=== PATIENT | female | born 1995 | race Caucasian/White ===

== ENCOUNTER 2018-01-12 14:08 | Emergency (ER) | payer OTHER ==
[2018-01-12 14:23] VITALS: RESP 18; TEMP 98.1
[2018-01-12] MEDS ORDERED: SODIUM CHLORIDE 0.9% 1,000 ML IV STA ×2 (15:00)
[2018-01-12 15:27] LABS: Appearance,Urine Clear (Clear); Bilirubin,Urine Negative (Negative); Blood,Urine Negative (Negative); Color,Urine Light Yellow; Glucose,Urine (UA) Negative (Negative); Ketones,Urine Negative (Negative); Leukocyte Esterase,Urine Negative (Negative); Nitrite,Urine Negative (Negative); Protein,Urine Negative (Negative); Specific Gravity,Urine 1.006 (1.001-1.035); Urobilinogen,Urine <2.0 mg/dL (<2.0)
[2018-01-12] MEDS ORDERED: KETOROLAC 30 MG/ML 1 ML VIAL IVP STA (15:38)
[2018-01-12] MEDS ORDERED: ONDANSETRON 4 MG/2 ML VIAL IVP STA (15:39)
[2018-01-12 15:43] LABS: Basophils # (A) 0.1 k/uL (0-0.2); Basophils % (A) 1 %; Eosinophils # (A) 0.3 k/uL (0-0.7); Eosinophils % (A) 3 %; HCT 41.9 % (34.0-46.0); HGB 13.2 gm/dL (11.4-16.0); Lymphocytes # (A) 2.7 k/uL (1.0-4.8); Lymphocytes % (A) 32 %; MCH 25.9 pg (25.0-35.0); MCHC 31.5 g/dL (31.0-37.0); MCV 82.2 fL (80.0-100.0); Monocytes # (A) 0.5 k/uL (0-1.0); Monocytes % (A) 5 %; Neutrophils # (A) 4.8 k/uL (1.3-7.7); Neutrophils % (A) 56 %; Platelet Count 390 k/uL (150-450); RDW 13.3 % (11.5-15.5); WBC 8.4 k/uL (3.8-10.6)
[2018-01-12 15:53] LABS: ALT 26 U/L (9-52); AST 24 U/L (14-36); Albumin 4.7 g/dL (3.5-5.0); Alkaline Phosphatase 92 U/L (38-126); Amylase 49 U/L (30-110); Anion Gap 12 mmol/L; Blood Urea Nitrogen 10 mg/dL (7-17); Calcium 10.2 mg/dL (8.4-10.2); Carbon Dioxide 25 mmol/L (22-30); Chloride 105 mmol/L (98-107); Glucose 83 mg/dL (74-99); Lipase 41 U/L (23-300); Potassium 4.4 mmol/L (3.5-5.1); Sodium 142 mmol/L (137-145); Total Bilirubin 0.3 mg/dL (0.2-1.3); Total Protein 7.9 g/dL (6.3-8.2)
--- NOTE | 2018-01-12 15:59 | ED ---
Abdominal Pain HPI - General Chief Complaint: Abdominal Pain Stated Complaint: Abdominal pain Time Seen by Provider: 01/12/18 15:00 Source: patient, RN notes reviewed, old records reviewed Mode of arrival: ambulatory Limitations: no limitations - History of Present Illness Initial Comments: 22 -year-old female presents emergency department today with lower abdominal pain. Patient reports that she's been having some nausea as well. She denies any urinary dysuria or hematuria. She states she's had normal bowel movements. She does have history of endometriosis. Last menstrual period was 2 weeks ago. She denies any chest pain shortness breath. - Related Data Home Medications Medication Instructions Recorded Confirmed Simethicone [Gas-X] 62.5 mg PO DAILY PRN 01/12/18 01/12/18 Previous Rx's Medication Instructions Recorded Ketorolac [Toradol] 10 mg PO TID #20 tab 01/12/18 Allergies Allergy/AdvReac Type Severity Reaction Status Date / Time methylphenidate Allergy Unknown Verified 01/12/18 14:26 [From Ritalin] Review of Systems ROS Statement: Those systems with pertinent positive or pertinent negative responses have been documented in the HPI. ROS Other: All systems not noted in ROS Statement are negative. Past Medical History Past Medical History: No Reported History History of Any Multi-Drug Resistant Organisms: None Reported Past Surgical History: Section Past Psychological History: Anxiety, Depression Smoking Status: Never smoker Past Alcohol Use History: Occasional Past Drug Use History: None Reported General Exam - General Exam Comments Initial Comments: Well-appearing 22-year-old female. No significant distress noted. Limitations: no limitations General appearance: alert, in no apparent distress Head exam: Present: atraumatic, normocephalic, normal inspection Eye exam: Present: normal appearance, PERRL, EOMI. Absent: scleral icterus, conjunctival injection, periorbital swelling ENT exam: Present: normal exam, mucous membranes moist Neck exam: Present: normal inspection. Absent: tenderness, meningismus, lymphadenopathy Respiratory exam: Present: normal lung sounds bilaterally. Absent: respiratory distress, wheezes, rales, rhonchi, stridor Cardiovascular Exam: Present: regular rate, normal rhythm, normal heart sounds. Absent: systolic murmur, diastolic murmur, rubs, gallop, clicks GI/Abdominal exam: Present: soft, tenderness (Right lower quadrant ), normal bowel sounds. Absent: distended, guarding, rebound, rigid Extremities exam: Present: normal inspection, full ROM, normal capillary refill. Absent: tenderness, pedal edema, joint swelling, calf tenderness Back exam: Present: normal inspection Neurological exam: Present: alert, oriented X3, CN II-XII intact Psychiatric exam: Present: normal affect, normal mood Skin exam: Present: warm, dry, intact, normal color. Absent: rash Course Vital Signs 01/12/18 14:20 Temperature 98.1 F Pulse Rate 96 Respiratory 18 Rate Blood Pressure 136/68 O2 Sat by Pulse 99 Oximetry Medical Decision Making - Medical Decision Making 19-year-old feel presents restaurant today complaining of lower abdominal pain cramping sensation. Patient is menstrual periods 2 weeks ago. Patient started on IV fluids labwork obtained. She contains complaining of some pain. At this time she has no vaginal discharge or bleeding. Lab work including urinalysis is unremarkable. She said complaint of pain and tenderness. Computed tomography scan was completed. This was negative for any acute process. There is evidence of a small right ovarian cyst. No evidence of free fluid. No clinical suspicion for torsion. Patient at this time will be discharged with close follow-up with primary care physician. Discussed a temperature medication. Patient received treatment plan will comply. Return parameters were discussed. - Lab Data Result diagrams: 01/12/18 15:33 01/12/18 15:33 Lab Results 01/12/18 01/12/18 01/12/18 Range/Units 14:20 14:20 15:33 WBC (3.8-10.6) k/uL RBC (3.80-5.40) m/uL Hgb (11.4-16.0) gm/dL Hct (34.0-46.0) % MCV (80.0-100.0) fL MCH (25.0-35.0) pg MCHC (31.0-37.0) g/dL RDW (11.5-15.5) % Plt Count (150-450) k/uL Neutrophils % % Lymphocytes % % Monocytes % % Eosinophils % % Basophils % % Neutrophils # (1.3-7.7) k/uL Lymphocytes # (1.0-4.8) k/uL Monocytes # (0-1.0) k/uL Eosinophils # (0-0.7) k/uL Basophils # (0-0.2) k/uL Sodium 142 (137-145) mmol/L Potassium 4.4 (3.5-5.1) mmol/L Chloride 105 (98-107) mmol/L Carbon Dioxide 25 (22-30) mmol/L Anion Gap 12 mmol/L BUN 10 (7-17) mg/dL Creatinine 0.50 L (0.52-1.04) mg/dL Est GFR (CKD-EPI)AfAm >90 (>60 ml/min/1.73 sqM) Est GFR (CKD-EPI)NonAf >90 (>60 ml/min/1.73 sqM) Glucose 83 (74-99) mg/dL Calcium 10.2 (8.4-10.2) mg/dL Total Bilirubin 0.3 (0.2-1.3) mg/dL AST 24 (14-36) U/L ALT 26 (9-52) U/L Alkaline Phosphatase 92 (38-126) U/L Total Protein 7.9 (6.3-8.2) g/dL Albumin 4.7 (3.5-5.0) g/dL Amylase 49 (30-110) U/L Lipase 41 (23-300) U/L Urine Color Light Yellow Urine Appearance Clear (Clear) Urine pH 7.0 (5.0-8.0) Ur Specific [place] 1.006 (1.001-1.035) Urine Protein Negative (Negative) Urine Glucose (UA) Negative (Negative) Urine Ketones Negative (Negative) Urine Blood Negative (Negative) Urine Nitrite Negative (Negative) Urine Bilirubin Negative (Negative) Urine Urobilinogen <2.0 (<2.0) mg/dL Ur Leukocyte Esterase Negative (Negative) Urine HCG, Qual Not Detected (Not Detectd) 01/12/18 Range/Units 15:33 WBC 8.4 (3.8-10.6) k/uL RBC 5.10 (3.80-5.40) m/uL Hgb 13.2 (11.4-16.0) gm/dL Hct 41.9 (34.0-46.0) % MCV 82.2 (80.0-100.0) fL MCH 25.9 (25.0-35.0) pg MCHC 31.5 (31.0-37.0) g/dL RDW 13.3 (11.5-15.5) % Plt Count 390 (150-450) k/uL Neutrophils % 56 % Lymphocytes % 32 % Monocytes % 5 % Eosinophils % 3 % Basophils % 1 % Neutrophils # 4.8 (1.3-7.7) k/uL Lymphocytes # 2.7 (1.0-4.8) k/uL Monocytes # 0.5 (0-1.0) k/uL Eosinophils # 0.3 (0-0.7) k/uL Basophils # 0.1 (0-0.2) k/uL Sodium (137-145) mmol/L Potassium (3.5-5.1) mmol/L Chloride (98-107) mmol/L Carbon Dioxide (22-30) mmol/L Anion Gap mmol/L BUN (7-17) mg/dL Creatinine (0.52-1.04) mg/dL Est GFR (CKD-EPI)AfAm (>60 ml/min/1.73 sqM) Est GFR (CKD-EPI)NonAf (>60 ml/min/1.73 sqM) Glucose (74-99) mg/dL Calcium (8.4-10.2) mg/dL Total Bilirubin (0.2-1.3) mg/dL AST (14-36) U/L ALT (9-52) U/L Alkaline Phosphatase (38-126) U/L Total Protein (6.3-8.2) g/dL Albumin (3.5-5.0) g/dL Amylase (30-110) U/L Lipase (23-300) U/L Urine Color Urine Appearance (Clear) Urine pH (5.0-8.0) Ur Specific [place] (1.001-1.035) Urine Protein (Negative) Urine Glucose (UA) (Negative) Urine Ketones (Negative) Urine Blood (Negative) Urine Nitrite (Negative) Urine Bilirubin (Negative) Urine Urobilinogen (<2.0) mg/dL Ur Leukocyte Esterase (Negative) Urine HCG, Qual (Not Detectd) - Radiology Data Radiology results: report reviewed Small right ovarian cyst. Negative CT of the abdomen and pelvis. Normal appendix. Disposition Clinical Impression: Right ovarian cyst Disposition: HOME SELF-CARE Condition: Good Instructions: Ovarian Cyst (ED) Additional Instructions: Patient advised to taking medication as prescribed. Follow-up with primary care physician. Return to the emergency department if any alarming signs or symptoms occur. Prescriptions: Ketorolac [Toradol] 10 mg PO TID #20 tab Is patient prescribed a controlled substance at d/c from ED?: No Referrals: None,Stated [Primary Care Provider] - 1-2 days Barbi Zarate MD [STAFF PHYSICIAN] - 1-2 days Luz Maria Reyes DO [Doctor of Osteopathic Medicine] - 1-2 days Time of Disposition: 18:22
--- NOTE | 2018-01-12 16:19 | XR ---
EXAMINATION TYPE: XR KUB DATE OF EXAM: 01/12/2018 COMPARISON: NONE HISTORY: Pain TECHNIQUE: Single supine KUB image of the abdomen is obtained FINDINGS: Small bowel demonstrates no evidence for dilatation or air fluid levels. Gas and fecal material is seen in non-distended colon. No convincing evidence for pneumoperitoneum. No unusual calcifications. The lung bases are clear. The osseous structures are intact. IMPRESSION: 1. Overall nonobstructive bowel gas pattern.
--- NOTE | 2018-01-12 18:01 | CT ---
EXAMINATION TYPE: CT abdomen pelvis w con DATE OF EXAM: 01/12/2018 COMPARISON: None HISTORY: Right lower quadrant abdominal pain. CT DLP: 1065 mGycm Automated exposure control for dose reduction was used. TECHNIQUE: Helical acquisition of images was performed from the lung bases through the pelvis. CONTRAST: Performed without Oral Contrast and with IV Contrast, patient injected with 100ml mL of Isovue M300. FINDINGS: Lung bases are clear. There is no pleural effusion. Heart size is normal. Stomach appears normal. Rein er spleen pancreas gallbladder appear normal. Bile ducts are not dilated. There is no adrenal mass. Kidneys show satisfactory contrast opacification. There is no hydronephrosi s. There is no retroperitoneal adenopathy. There is no mesenteric adenopathy. There is no ascites. Bl adder distends smoothly. Uterus is anteverted. Bony structures appear intact. Bony pelvis appears int act. There is no inguinal hernia or adenopathy. There is no sign of free air. The appendix appears normal. There is no pelvic mass. There is 1.3 cm cyst on the right ovary. There is no intestinal wall thicke shankar. There are no dilated loops. Abdominal soft tissues are unremarkable. IMPRESSION: SMALL RIGHT OVARIAN CYST. NEGATIVE CT SCAN OF THE ABDOMEN AND PELVIS. NORMAL APPENDIX.
[2018-01-12 18:42] VITALS: BP 132/62; PULSE 87
== END 2018-01-12 18:42 | disposition home or self-care (01) ==
LOC: EC 14:08
DX: N83.201 Unspecified ovarian cyst, right side (principal); Z88.8 Allergy status to other drugs, medicaments and biological substances
CPT/HCPCS: 36415; 74018; 74177; 80053; 81003; 81025; 82150; 83690; 85025; 87086; 96361; 96374; 96375; 99285

== ENCOUNTER 2018-04-16 18:05 | Emergency (ER) | payer OTHER ==
[2018-04-16 20:35] LABS: Basophils # (A) 0.1 k/uL (0-0.2); Basophils % (A) 1 %; Eosinophils # (A) 0.3 k/uL (0-0.7); Eosinophils % (A) 3 %; HCT 40.4 % (34.0-46.0); HGB 13.2 gm/dL (11.4-16.0); Lymphocytes # (A) 2.7 k/uL (1.0-4.8); Lymphocytes % (A) 25 %; MCH 26.4 pg (25.0-35.0); MCHC 32.6 g/dL (31.0-37.0); MCV 80.9 fL (80.0-100.0); Mean Platelet Volume 6.1; Monocytes # (A) 0.5 k/uL (0-1.0); Monocytes % (A) 4 %; Neutrophils % (A) 65 %; Platelet Count 421 k/uL (150-450); RBC 4.99 m/uL (3.80-5.40); RDW 13.6 % (11.5-15.5); WBC 10.8 k/uL (3.8-10.6)
[2018-04-16] MEDS ORDERED: SODIUM CHLORIDE 0.9% 1,000 ML IV STA (20:45)
[2018-04-16] MEDS ORDERED: SODIUM CHLORIDE 0.9% 500 ML 500 ML IV STA (20:45)
[2018-04-16 20:46] LABS: ALT 21 U/L (9-52); AST 17 U/L (14-36); Albumin 4.4 g/dL (3.5-5.0); Alkaline Phosphatase 83 U/L (38-126); Anion Gap 8 mmol/L; Blood Urea Nitrogen 9 mg/dL (7-17); Calcium 10.2 mg/dL (8.4-10.2); Carbon Dioxide 27 mmol/L (22-30); Chloride 106 mmol/L (98-107); Glucose 92 mg/dL (74-99); Potassium 4.1 mmol/L (3.5-5.1); Sodium 141 mmol/L (137-145); Total Bilirubin 0.2 mg/dL (0.2-1.3); Total Protein 7.5 g/dL (6.3-8.2)
--- NOTE | 2018-04-16 20:49 | ED ---
Dizziness HPI - General Chief Complaint: Dizziness Stated Complaint: DIZZINESS Time Seen by Provider: 04/16/18 18:08 Source: patient, RN notes reviewed Mode of arrival: EMS Limitations: no limitations - History of Present Illness Initial Comments: This a 22-year-old female who presents with complaints of dizziness with some difficulty breathing today she states she had increased heart rate also no chest pain she does states she suffers from anxiety and depression. Last menstrual period just finished. He denies any chance being . He has no personal history of heart disease or is a family history of heart disease. Complaints or any other problems no MD Complaint: dizziness, lightheadedness, other - Related Data Home Medications Medication Instructions Recorded Confirmed No Known Home Medications 04/16/18 04/16/18 Allergies Allergy/AdvReac Type Severity Reaction Status Date / Time methylphenidate Allergy Unknown Verified 04/16/18 20:34 [From Ritalin] Review of Systems ROS Statement: Those systems with pertinent positive or pertinent negative responses have been documented in the HPI. ROS Other: All systems not noted in ROS Statement are negative. Past Medical History Past Medical History: No Reported History History of Any Multi-Drug Resistant Organisms: None Reported Past Surgical History: Section Past Psychological History: Anxiety, Depression Smoking Status: Never smoker Past Alcohol Use History: Occasional Past Drug Use History: None Reported General Exam - General Exam Comments Initial Comments: This a well-developed well-nourished awake alert oriented 3 female Limitations: no limitations General appearance: alert, anxious Head exam: Present: atraumatic, normocephalic, normal inspection Eye exam: Present: normal appearance, PERRL, EOMI. Absent: scleral icterus, conjunctival injection, periorbital swelling ENT exam: Present: normal exam, mucous membranes moist Neck exam: Present: normal inspection. Absent: tenderness, meningismus, lymphadenopathy Respiratory exam: Present: normal lung sounds bilaterally. Absent: respiratory distress, wheezes, rales, rhonchi, stridor Cardiovascular Exam: Present: regular rate, normal rhythm, normal heart sounds. Absent: systolic murmur, diastolic murmur, rubs, gallop, clicks GI/Abdominal exam: Present: soft, normal bowel sounds. Absent: distended, tenderness, guarding, rebound, rigid Extremities exam: Present: normal inspection, full ROM, normal capillary refill. Absent: tenderness, pedal edema, joint swelling, calf tenderness Back exam: Present: normal inspection Neurological exam: Present: alert, oriented X3, CN II-XII intact Psychiatric exam: Present: normal affect, normal mood Skin exam: Present: warm, dry, intact, normal color. Absent: rash Course Vital Signs 04/16/18 04/16/18 18:11 20:22 Temperature 98.1 F Pulse Rate 98 80 Respiratory 20 17 Rate Blood Pressure 140/87 136/85 O2 Sat by Pulse 98 99 Oximetry - Reevaluation(s) Reevaluation #1: 04/16/18 20:51 Current exam patient's heart was noted go up from the 90s to the 120s and did resolve after left her room. Medical Decision Making - Medical Decision Making Respond to IV fluids and feels better. Upon reexam the heart rates no iron in the 90s. Patient be discharged she was advised to increase oral fluid intake. - Lab Data Result diagrams: 04/16/18 20:09 04/16/18 20:09 Lab Results 04/16/18 04/16/18 04/16/18 Range/Units 20:09 20:09 20:09 WBC 10.8 H (3.8-10.6) k/uL RBC 4.99 (3.80-5.40) m/uL Hgb 13.2 (11.4-16.0) gm/dL Hct 40.4 (34.0-46.0) % MCV 80.9 (80.0-100.0) fL MCH 26.4 (25.0-35.0) pg MCHC 32.6 (31.0-37.0) g/dL RDW 13.6 (11.5-15.5) % Plt Count 421 (150-450) k/uL Neutrophils % 65 % Lymphocytes % 25 % Monocytes % 4 % Eosinophils % 3 % Basophils % 1 % Neutrophils # 7.0 (1.3-7.7) k/uL Lymphocytes # 2.7 (1.0-4.8) k/uL Monocytes # 0.5 (0-1.0) k/uL Eosinophils # 0.3 (0-0.7) k/uL Basophils # 0.1 (0-0.2) k/uL Sodium 141 (137-145) mmol/L Potassium 4.1 (3.5-5.1) mmol/L Chloride 106 (98-107) mmol/L Carbon Dioxide 27 (22-30) mmol/L Anion Gap 8 mmol/L BUN 9 (7-17) mg/dL Creatinine 0.63 (0.52-1.04) mg/dL Est GFR (CKD-EPI)AfAm >90 (>60 ml/min/1.73 sqM) Est GFR (CKD-EPI)NonAf >90 (>60 ml/min/1.73 sqM) Glucose 92 (74-99) mg/dL Calcium 10.2 (8.4-10.2) mg/dL Magnesium 1.9 (1.6-2.3) mg/dL Total Bilirubin 0.2 (0.2-1.3) mg/dL AST 17 (14-36) U/L ALT 21 (9-52) U/L Alkaline Phosphatase 83 (38-126) U/L Total Protein 7.5 (6.3-8.2) g/dL Albumin 4.4 (3.5-5.0) g/dL TSH 2.330 (0.465-4.680) mIU/L Urine HCG, Qual (Not Detectd) 04/16/18 Range/Units 21:00 WBC (3.8-10.6) k/uL RBC (3.80-5.40) m/uL Hgb (11.4-16.0) gm/dL Hct (34.0-46.0) % MCV (80.0-100.0) fL MCH (25.0-35.0) pg MCHC (31.0-37.0) g/dL RDW (11.5-15.5) % Plt Count (150-450) k/uL Neutrophils % % Lymphocytes % % Monocytes % % Eosinophils % % Basophils % % Neutrophils # (1.3-7.7) k/uL Lymphocytes # (1.0-4.8) k/uL Monocytes # (0-1.0) k/uL Eosinophils # (0-0.7) k/uL Basophils # (0-0.2) k/uL Sodium (137-145) mmol/L Potassium (3.5-5.1) mmol/L Chloride (98-107) mmol/L Carbon Dioxide (22-30) mmol/L Anion Gap mmol/L BUN (7-17) mg/dL Creatinine (0.52-1.04) mg/dL Est GFR (CKD-EPI)AfAm (>60 ml/min/1.73 sqM) Est GFR (CKD-EPI)NonAf (>60 ml/min/1.73 sqM) Glucose (74-99) mg/dL Calcium (8.4-10.2) mg/dL Magnesium (1.6-2.3) mg/dL Total Bilirubin (0.2-1.3) mg/dL AST (14-36) U/L ALT (9-52) U/L Alkaline Phosphatase (38-126) U/L Total Protein (6.3-8.2) g/dL Albumin (3.5-5.0) g/dL TSH (0.465-4.680) mIU/L Urine HCG, Qual Not Detected (Not Detectd) - EKG Data -: EKG Interpreted by Me EKG shows normal: sinus rhythm, axis, intervals, QRS complexes (Normal sinus rhythm with 75. Interval 134 QRS duration 88 QT since QTC 372/[address] [id number]) - Radiology Data Radiology results: report reviewed, image reviewed (I did review the imaging and report no acute findings.) Disposition Clinical Impression: Palpitations, Dehydration, Dizzy Disposition: HOME SELF-CARE Condition: Good Instructions: Dizziness (ED), Dehydration (ED), Heart Palpitations (DC) Is patient prescribed a controlled substance at d/c from ED?: No Referrals: None,Stated [Primary Care Provider] - 1-2 days
[2018-04-16 21:04] LABS: Magnesium 1.9 mg/dL (1.6-2.3)
--- NOTE | 2018-04-16 21:45 | XR ---
EXAMINATION TYPE: XR chest 2V DATE OF EXAM: 04/16/2018 COMPARISON: None HISTORY: 22-year-old female with cough TECHNIQUE: PA and lateral views FINDINGS: The cardiomediastinal silhouette, aorta, and pulmonary vasculature are within normal limits. Lungs an d pleural spaces are clear. IMPRESSION: No acute cardiopulmonary process.
[2018-04-16 23:08] VITALS: BP 131/79; PULSE 92; RESP 18; TEMP 97.9
== END 2018-04-16 22:50 | disposition home or self-care (01) ==
LOC: EC 18:05
DX: E86.0 Dehydration (principal); R42 Dizziness and giddiness; R00.2 Palpitations; R06.00 Dyspnea, unspecified; Z88.8 Allergy status to other drugs, medicaments and biological substances
CPT/HCPCS: 36415; 71046; 80053; 81025; 83735; 84443; 85025; 93005; 96360; 99284

== ENCOUNTER 2018-05-28 16:51 | Emergency (ER) | payer OTHER ==
[2018-05-28 17:00] VITALS: RESP 18; TEMP 98.5
[2018-05-28 17:30] LABS: Basophils % (A) 1 %; Eosinophils # (A) 0.5 k/uL (0-0.7); Eosinophils % (A) 5 %; HCT 39.9 % (34.0-46.0); HGB 12.8 gm/dL (11.4-16.0); Lymphocytes # (A) 2.5 k/uL (1.0-4.8); Lymphocytes % (A) 30 %; MCH 25.9 pg (25.0-35.0); MCV 80.8 fL (80.0-100.0); Mean Platelet Volume 6.7; Monocytes # (A) 0.4 k/uL (0-1.0); Monocytes % (A) 5 %; Neutrophils # (A) 4.9 k/uL (1.3-7.7); Neutrophils % (A) 58 %; Platelet Count 349 k/uL (150-450); RBC 4.93 m/uL (3.80-5.40); RDW 13.7 % (11.5-15.5); WBC 8.4 k/uL (3.8-10.6)
[2018-05-28 17:38] LABS: INR 0.9 (<1.2); Partial Thromboplastin Time 27.1 sec (22.0-30.0); Prothrombin Time 9.9 sec (9.0-12.0)
[2018-05-28 17:54] LABS: ALT 26 U/L (9-52); AST 18 U/L (14-36); Albumin 4.2 g/dL (3.5-5.0); Alkaline Phosphatase 73 U/L (38-126); Anion Gap 8 mmol/L; Blood Urea Nitrogen 10 mg/dL (7-17); Calcium 9.6 mg/dL (8.4-10.2); Carbon Dioxide 24 mmol/L (22-30); Chloride 108 mmol/L (98-107); Glucose 95 mg/dL (74-99); Magnesium 1.8 mg/dL (1.6-2.3); Sodium 140 mmol/L (137-145); Total Bilirubin 0.3 mg/dL (0.2-1.3); Total Protein 7.1 g/dL (6.3-8.2)
[2018-05-28] MEDS ORDERED: IPRATROPIUM-ALBUTEROL 3 ML NEB INHALATION STA (18:40)
--- NOTE | 2018-05-28 18:42 | ED ---
General Adult HPI - General Chief complaint: Chest Pain Stated complaint: SOB, chest pain Time Seen by Provider: 05/28/18 18:11 Source: patient, RN notes reviewed, old records reviewed Mode of arrival: ambulatory Limitations: no limitations - History of Present Illness Initial comments: 21-year-old female patient with no pertinent past medical history presents to ED with chief complaint of one month of shortness of breath, chest heaviness and transient dizziness. Patient reports that this occurs multiple times each day, resolved without intervention. Patient was seen for this approximately 2 months ago, diagnosed with dehydration. Patient denies any chest pain. Patient denies any cough or congestion. Patient denies other complaints. Systemic: Pt denies fatigue, myalgia, fever/chills, rash. Pt denies weakness, night sweats, weight loss. Neuro: Pt denies headache, visual disturbances, syncope or pre-syncope. HEENT: Pt denies ocular discharge or irritation, otalgia, rhinorrhea, pharyngitis or notable lymphadenopathy. Cardiopulmonary: Pt denies chest pain, heart palpitations, dyspnea on exertion. Abdominal/GI: Pt denies abdominal pain, n/v/d. : Pt denies dysuria, burning w/ urination, frequency/urgency. Denies new onset urinary or bowel incontinence. MSK: Pt denies myalgia, loss of strength or function in extremities. Neuro: Pt denies new onset weakness, paresthesias. - Related Data Previous Rx's Medication Instructions Recorded Albuterol Inhaler [Ventolin Hfa 1 - 2 puff INHALATION Q4-6H PRN #1 05/28/18 Inhaler] inhaler Albuterol Nebulized [Ventolin 2.5 mg INHALATION Q4H PRN 10 Days 05/28/18 Nebulized] nebu Allergies Allergy/AdvReac Type Severity Reaction Status Date / Time methylphenidate Allergy Unknown Verified 05/28/18 16:57 [From Ritalin] Review of Systems ROS Statement: Those systems with pertinent positive or pertinent negative responses have been documented in the HPI. ROS Other: All systems not noted in ROS Statement are negative. Past Medical History Past Medical History: No Reported History History of Any Multi-Drug Resistant Organisms: None Reported Past Surgical History: Section Past Psychological History: Anxiety, Depression Smoking Status: Never smoker Past Alcohol Use History: Occasional Past Drug Use History: None Reported General Exam - General Exam Comments Initial Comments: Constitutional: NAD, AOX3, Pt has pleasant affect. HEENT: NC/AT, trachea midline, neck supple, no lymphadenopathy. Posterior pharynx non erythematous, without exudates. External ears appear normal, without discharge. Mucous membranes moist. Eyes PERRLA, EOM intact. There is no scleral icterus. No pallor noted. Cardiopulmonary: RRR, no murmurs, rubs or gallops, no JVD noted. Lungs CTAB in anterior and posterior henderson. No peripheral edema. Abdominal exam: Abdomen soft and non-distended. Abdomen non-tender to palpation in all 4 quadrants. Bowel sounds active in LLQ. No hepatosplenomegaly. No ecchymosis Neuro: CN II-XII grossly intact. No nuchal rigidity. MSK: No posterior calf tenderness bilaterally, homans sign negative bilaterally. Posterior tibialis and radial pulse +2 bilaterally. Sensation intact in upper and lower extremities. Full active ROM in upper and lower extremities, 5/5 stregnth. Limitations: no limitations Course Vital Signs 05/28/18 05/28/18 05/28/18 16:57 19:09 19:32 Temperature 98.5 F Pulse Rate 85 85 85 Respiratory 18 Rate Blood Pressure O2 Sat by Pulse Oximetry 05/28/18 20:32 Temperature Pulse Rate 69 Respiratory 18 Rate Blood Pressure 141/85 O2 Sat by Pulse 100 Oximetry Medical Decision Making - Medical Decision Making 21-year-old female patient with no pertinent past medical history presents to ED with chief complaint of one month of shortness of breath, chest heaviness and transient dizziness. Patient reports that this occurs multiple times each day, resolved without intervention. Patient was seen for this approximately 2 months ago, diagnosed with dehydration. Patient denies any chest pain. Patient denies any cough or congestion. Patient denies other complaints. Pt VSS , afebrile. Pt is PERC negative. O2 investigations reveal non-impressive CBC, coagulation studies within normal limits, d-dimer negative, CMP within normal limits, troponin negative. CXR wnl. EKG not concerning for acute ischemia. Patient improved with DuoNeb treatment. Patient diagnosis bronchospasm. Patient prescribed albuterol nebulizer solution as well as his inhaler. Patient to follow-up with primary care provider in 1-2 days for continued evaluation. Patient to return to ED if new signs symptoms develop or if condition worsens in any way. - Lab Data Result diagrams: 05/28/18 17:11 05/28/18 17:11 Lab Results 05/28/18 05/28/18 05/28/18 Range/Units 17:11 17:11 17:11 WBC 8.4 (3.8-10.6) k/uL RBC 4.93 (3.80-5.40) m/uL Hgb 12.8 (11.4-16.0) gm/dL Hct 39.9 (34.0-46.0) % MCV 80.8 (80.0-100.0) fL MCH 25.9 (25.0-35.0) pg MCHC 32.0 (31.0-37.0) g/dL RDW 13.7 (11.5-15.5) % Plt Count 349 (150-450) k/uL Neutrophils % 58 % Lymphocytes % 30 % Monocytes % 5 % Eosinophils % 5 % Basophils % 1 % Neutrophils # 4.9 (1.3-7.7) k/uL Lymphocytes # 2.5 (1.0-4.8) k/uL Monocytes # 0.4 (0-1.0) k/uL Eosinophils # 0.5 (0-0.7) k/uL Basophils # 0.0 (0-0.2) k/uL PT 9.9 (9.0-12.0) sec INR 0.9 (<1.2) APTT 27.1 (22.0-30.0) sec D-Dimer (<0.60) mg/L FEU Sodium 140 (137-145) mmol/L Potassium 4.0 (3.5-5.1) mmol/L Chloride 108 H (98-107) mmol/L Carbon Dioxide 24 (22-30) mmol/L Anion Gap 8 mmol/L BUN 10 (7-17) mg/dL Creatinine 0.53 (0.52-1.04) mg/dL Est GFR (CKD-EPI)AfAm >90 (>60 ml/min/1.73 sqM) Est GFR (CKD-EPI)NonAf >90 (>60 ml/min/1.73 sqM) Glucose 95 (74-99) mg/dL Calcium 9.6 (8.4-10.2) mg/dL Magnesium 1.8 (1.6-2.3) mg/dL Total Bilirubin 0.3 (0.2-1.3) mg/dL AST 18 (14-36) U/L ALT 26 (9-52) U/L Alkaline Phosphatase 73 (38-126) U/L Troponin I (0.000-0.034) ng/mL Total Protein 7.1 (6.3-8.2) g/dL Albumin 4.2 (3.5-5.0) g/dL 05/28/18 05/28/18 Range/Units 17:11 17:11 WBC (3.8-10.6) k/uL RBC (3.80-5.40) m/uL Hgb (11.4-16.0) gm/dL Hct (34.0-46.0) % MCV (80.0-100.0) fL MCH (25.0-35.0) pg MCHC (31.0-37.0) g/dL RDW (11.5-15.5) % Plt Count (150-450) k/uL Neutrophils % % Lymphocytes % % Monocytes % % Eosinophils % % Basophils % % Neutrophils # (1.3-7.7) k/uL Lymphocytes # (1.0-4.8) k/uL Monocytes # (0-1.0) k/uL Eosinophils # (0-0.7) k/uL Basophils # (0-0.2) k/uL PT (9.0-12.0) sec INR (<1.2) APTT (22.0-30.0) sec D-Dimer 0.43 (<0.60) mg/L FEU Sodium (137-145) mmol/L Potassium (3.5-5.1) mmol/L Chloride (98-107) mmol/L Carbon Dioxide (22-30) mmol/L Anion Gap mmol/L BUN (7-17) mg/dL Creatinine (0.52-1.04) mg/dL Est GFR (CKD-EPI)AfAm (>60 ml/min/1.73 sqM) Est GFR (CKD-EPI)NonAf (>60 ml/min/1.73 sqM) Glucose (74-99) mg/dL Calcium (8.4-10.2) mg/dL Magnesium (1.6-2.3) mg/dL Total Bilirubin (0.2-1.3) mg/dL AST (14-36) U/L ALT (9-52) U/L Alkaline Phosphatase (38-126) U/L Troponin I <0.012 (0.000-0.034) ng/mL Total Protein (6.3-8.2) g/dL Albumin (3.5-5.0) g/dL Disposition Clinical Impression: Bronchospasm Disposition: HOME SELF-CARE Condition: Stable Instructions (If sedation given, give patient instructions): Bronchospasm (ED) Additional Instructions: Patient to adhere to previously discussed treatment plan and will take medication(s) as directed. Patient to follow up with PCP in 1-2 days. Patient to return to ED if symptoms do not improve. Prescriptions: Albuterol Inhaler [Ventolin Hfa Inhaler] 1 - 2 puff INHALATION Q4-6H PRN #1 inhaler PRN Reason: Cough Albuterol Nebulized [Ventolin Nebulized] 2.5 mg INHALATION Q4H PRN 10 Days nebu PRN Reason: Cough Is patient prescribed a controlled substance at d/c from ED?: No Referrals: None,Stated [Primary Care Provider] - 1-2 days [facility] [NON-STAFF] - 1-2 days Time of Disposition: 20:41
--- NOTE | 2018-05-28 19:11 | XR ---
EXAMINATION: XR chest 2V DATE AND TIME: 05/28/2018 6:30 PM CLINICAL INDICATION: PHH; Chest Pain TECHNIQUE: Departmental protocol COMPARISON: 04/16/2018 FINDINGS: The lungs are clear. The pleural spaces are negative. The cardiac silhouette is not enlarged. The remainder of the mediastinal silhouette is unremarkable. The skeletal structures and soft tissues are negative for acute findings. IMPRESSION: NO ACUTE PROCESS.
[2018-05-28 20:33] VITALS: BP 141/85; PULSE 69
== END 2018-05-28 20:49 | disposition home or self-care (01) ==
LOC: EC 16:51
DX: J98.01 Acute bronchospasm (principal); R42 Dizziness and giddiness; Z88.8 Allergy status to other drugs, medicaments and biological substances
CPT/HCPCS: 36415; 71046; 80053; 83735; 84484; 85025; 85379; 85610; 85730; 93005; 94640; 99285

== ENCOUNTER 2019-05-11 04:06 | Emergency (ER) | payer BC, OTHER ==
[2019-05-11 04:11] VITALS: RESP 18
[2019-05-11] MEDS ORDERED: ACETAMINOPHEN TAB 325 MG TAB PO STA (04:25)
[2019-05-11 04:58] LABS: Basophils % (A) 1 %; Eosinophils # (A) 0.4 k/uL (0-0.7); Eosinophils % (A) 7 %; HCT 37.8 % (34.0-46.0); HGB 12.4 gm/dL (11.4-16.0); Lymphocytes # (A) 1.5 k/uL (1.0-4.8); Lymphocytes % (A) 24 %; MCH 27.5 pg (25.0-35.0); MCHC 32.7 g/dL (31.0-37.0); Mean Platelet Volume 6.9; Monocytes # (A) 0.3 k/uL (0-1.0); Monocytes % (A) 5 %; Neutrophils % (A) 63 %; Platelet Count 330 k/uL (150-450); RDW 12.5 % (11.5-15.5); WBC 6.4 k/uL (3.8-10.6)
[2019-05-11] MEDS ORDERED: SODIUM CHLORIDE 0.9% 1,000 ML IV ONE (05:17)
--- NOTE | 2019-05-11 05:20 | ED ---
Female Urogenital HPI - General Chief complaint: Vaginal Bleeding Stated complaint: Bleeding, Time Seen by Provider: 05/11/19 04:24 Source: patient Mode of arrival: ambulatory Limitations: no limitations - History of Present Illness Initial comments: This patient is 23-year-old woman who presents to be evaluated for pelvic pain and vaginal bleeding. The patient states that she had taken a test last week and it was positive. She states that over the course of last night she noticed she was having some suprapubic cramping. When she got up for work this morning she noticed that she was passing some blood and some clots. She states that symptoms are somewhat to previous miscarriage that she had. Patient is Ab1, , with a full-term delivery. MD Complaint: vaginal bleeding, pelvic pain -: hour(s) Location: suprapubic Radiation: non-radiating Severity: moderate Quality: cramping Consistency: constant Improves with: none Last Menstrual Period: 04/13/19 Patient : Yes Associated Symptoms: vaginal bleeding - Related Data Home Medications Medication Instructions Recorded Confirmed No Known Home Medications 05/11/19 05/11/19 Allergies Allergy/AdvReac Type Severity Reaction Status Date / Time methylphenidate Allergy Unknown Verified 05/11/19 04:11 [From Ritalin] Review of Systems ROS Statement: Those systems with pertinent positive or pertinent negative responses have been documented in the HPI. ROS Other: All systems not noted in ROS Statement are negative. Constitutional: Denies: fever, chills, weakness Respiratory: Denies: cough, dyspnea Cardiovascular: Denies: chest pain, palpitations, edema, syncope Gastrointestinal: Reports: as per HPI, abdominal pain. Denies: nausea, vomiting, diarrhea, constipation Genitourinary: Reports: abnormal menses. Denies: dysuria, hematuria, discharge Musculoskeletal: Denies: back pain Skin: Denies: rash Neurological: Denies: headache Hematological/Lymphatic: Denies: easy bleeding Past Medical History Past Medical History: No Reported History History of Any Multi-Drug Resistant Organisms: None Reported Past Surgical History: Section Past Psychological History: Anxiety, Depression Smoking Status: Never smoker Past Alcohol Use History: Occasional Past Drug Use History: None Reported General Exam Limitations: no limitations General appearance: alert, in no apparent distress Head exam: Present: atraumatic, normocephalic Eye exam: Present: normal appearance. Absent: scleral icterus, conjunctival injection ENT exam: Present: normal oropharynx Neck exam: Present: normal inspection Respiratory exam: Present: normal lung sounds bilaterally. Absent: respiratory distress, wheezes, rales, rhonchi, stridor Cardiovascular Exam: Present: regular rate, normal rhythm, normal heart sounds. Absent: systolic murmur, diastolic murmur, rubs, gallop GI/Abdominal exam: Present: soft, normal bowel sounds. Absent: distended, tenderness, guarding, rebound, rigid, mass, pulsatile mass, hernia Extremities exam: Present: normal inspection, normal capillary refill. Absent: pedal edema, calf tenderness Back exam: Present: normal inspection. Absent: CVA tenderness (R), CVA tenderness (L) Neurological exam: Present: alert Skin exam: Present: warm, dry, intact, normal color. Absent: rash Course Vital Signs 05/11/19 04:08 Temperature 98.0 F Pulse Rate 90 Respiratory 18 Rate Blood Pressure 136/86 O2 Sat by Pulse 100 Oximetry Medical Decision Making - Medical Decision Making Patient states she has blood type O positive. This is a 23-year-old woman who has had 2 positive tests earlier in the week. She presents with the acute onset of suprapubic cramping and vaginal bleeding with clots. She does believe she saw small amount of tissue as well. While the patient's tests are pending she states that her symptoms have started to resolve. I did discuss with her that ultrasound will be in at 7 AM and we can't have an ultrasound as soon as they arrive. Patient states she is feeling better and would like to go home. I discussed appropriate further care and follow-up as well as return parameters. - Lab Data Result diagrams: 05/11/19 04:34 Lab Results 05/11/19 05/11/19 05/11/19 Range/Units 04:34 04:34 04:34 WBC 6.4 (3.8-10.6) k/uL RBC 4.50 (3.80-5.40) m/uL Hgb 12.4 (11.4-16.0) gm/dL Hct 37.8 (34.0-46.0) % MCV 84.0 (80.0-100.0) fL MCH 27.5 (25.0-35.0) pg MCHC 32.7 (31.0-37.0) g/dL RDW 12.5 (11.5-15.5) % Plt Count 330 (150-450) k/uL Neutrophils % 63 % Lymphocytes % 24 % Monocytes % 5 % Eosinophils % 7 % Basophils % 1 % Neutrophils # 4.0 (1.3-7.7) k/uL Lymphocytes # 1.5 (1.0-4.8) k/uL Monocytes # 0.3 (0-1.0) k/uL Eosinophils # 0.4 (0-0.7) k/uL Basophils # 0.0 (0-0.2) k/uL HCG, Quant <2.4 mIU/mL Urine Color Yellow Urine Appearance Clear (Clear) Urine pH 5.5 (5.0-8.0) Ur Specific [place] 1.027 (1.001-1.035) Urine Protein Negative (Negative) Urine Glucose (UA) Negative (Negative) Urine Ketones Negative (Negative) Urine Blood Moderate H (Negative) Urine Nitrite Negative (Negative) Urine Bilirubin Negative (Negative) Urine Urobilinogen <2.0 (<2.0) mg/dL Ur Leukocyte Esterase Negative (Negative) Urine RBC 6 H (0-5) /hpf Urine WBC 1 (0-5) /hpf Ur Squamous Epith Cells <1 (0-4) /hpf Urine Mucus Rare H (None) /hpf Disposition Clinical Impression: Miscarriage Disposition: HOME SELF-CARE Condition: Good Instructions (If sedation given, give patient instructions): Miscarriage (ED) Is patient prescribed a controlled substance at d/c from ED?: No Referrals: None,Stated [Primary Care Provider] - 1-2 days
[2019-05-11 05:25] LABS: Appearance,Urine Clear (Clear); Bilirubin,Urine Negative (Negative); Blood,Urine Moderate (Negative); Color,Urine Yellow; Glucose,Urine (UA) Negative (Negative); Ketones,Urine Negative (Negative); Leukocyte Esterase,Urine Negative (Negative); Mucus,Urine Rare /hpf; Nitrite,Urine Negative (Negative); PH, Urine 5.5 (5.0-8.0); Protein,Urine Negative (Negative); RBC,Urine 6 /hpf (0-5); Specific Gravity,Urine 1.027 (1.001-1.035); Squamous Epithelial Cell,Urine <1 /hpf (0-4); Urobilinogen,Urine <2.0 mg/dL (<2.0); WBC,Urine 1 /hpf (0-5)
[2019-05-11 06:36] VITALS: BP 124/72; PULSE 89; TEMP 97
== END 2019-05-11 06:36 | disposition home or self-care (01) ==
LOC: EC 04:06
DX: O03.9 Complete or unspecified spontaneous abortion without complication (principal); Z88.8 Allergy status to other drugs, medicaments and biological substances
CPT/HCPCS: 36415; 81001; 84702; 85025; 86900; 86901; 96360; 99284

== ENCOUNTER 2019-09-23 04:04 | Emergency (ER) | payer BC, OTHER ==
[2019-09-23 04:08] VITALS: BP 149/96; PULSE 77; RESP 18; TEMP 98.1
[2019-09-23] MEDS ORDERED: ONDANSETRON 4 MG/2 ML VIAL IVP STA (04:18)
[2019-09-23] MEDS ORDERED: SODIUM CHLORIDE 0.9% 1,000 ML IV STA (04:18)
[2019-09-23] MEDS ORDERED: FAMOTIDINE 20 MG/2 ML VIAL IV STA (04:20)
[2019-09-23] MEDS ORDERED: MAG HYDROX/AL HYDROX/SIMETH 30 ML, HYOSCYAMINE ELIXIR 10 ML, LIDOCAINE VISCOUS 2% 10 ML PO STA ×3 (04:20)
[2019-09-23 04:45] LABS: Basophils % (A) 0 %; Eosinophils # (A) 0.1 k/uL (0-0.7); Eosinophils % (A) 1 %; HCT 39.8 % (34.0-46.0); HGB 13.9 gm/dL (11.4-16.0); Lymphocytes # (A) 1.3 k/uL (1.0-4.8); Lymphocytes % (A) 14 %; MCH 28.7 pg (25.0-35.0); MCHC 34.8 g/dL (31.0-37.0); MCV 82.3 fL (80.0-100.0); Mean Platelet Volume 6.6; Monocytes # (A) 0.5 k/uL (0-1.0); Monocytes % (A) 5 %; Neutrophils % (A) 78 %; Platelet Count 391 k/uL (150-450); RBC 4.83 m/uL (3.80-5.40); RDW 12.6 % (11.5-15.5); WBC 8.9 k/uL (3.8-10.6)
[2019-09-23 04:47] LABS: Appearance,Urine Clear (Clear); Bilirubin,Urine Negative (Negative); Blood,Urine Small (Negative); Color,Urine Yellow; Glucose,Urine (UA) Negative (Negative); Ketones,Urine 1+ (Negative); Leukocyte Esterase,Urine Trace (Negative); Mucus,Urine Occasional /hpf; Nitrite,Urine Negative (Negative); PH, Urine 5.5 (5.0-8.0); Protein,Urine Negative (Negative); RBC,Urine 2 /hpf (0-5); Specific Gravity,Urine 1.013 (1.001-1.035); Squamous Epithelial Cell,Urine 5 /hpf (0-4); Urobilinogen,Urine <2.0 mg/dL (<2.0); WBC,Urine 4 /hpf (0-5)
--- NOTE | 2019-09-23 04:47 | ED ---
Abdominal Pain HPI - General Chief Complaint: Abdominal Pain Stated Complaint: Vomiting, Abd pain Time Seen by Provider: 09/23/19 04:07 Source: patient Mode of arrival: ambulatory Limitations: no limitations - History of Present Illness Initial Comments: Christel is a 24-year-old female presents the ER today for reevaluation of persistent epigastric abdominal pain nausea and vomiting. Patient reports approximately 1 week ago she developed nausea vomiting and diarrhea, she was seen in an outside hospital and prescribed antiemetics. She reports the diar angie resolved but she's had persistent nausea and burning epigastric abdominal pain. She was reevaluated at the outside hospital and advised to follow up with primary care for referral to GI. Patient states that she's been vomiting hasn't been able to hold anything down for a number of days so came here for second opinion. Patient denies any fevers chills chest pain cough, she denies any diarrhea for the past 4 days. She reports her abdominal pain is burning and epigastric. - Related Data Previous Rx's Medication Instructions Recorded Ondansetron [Zofran ODT] 4 mg PO Q8HR #12 tab 09/23/19 Pantoprazole Sodium [Protonix] 20 mg PO DAILY #30 tablet. 09/23/19 Sucralfate [Carafate] 1 gm PO ACHS #1 bottle 09/23/19 Sucralfate [Carafate] 1 gm PO ACHS #60 tablet 09/23/19 Allergies Allergy/AdvReac Type Severity Reaction Status Date / Time methylphenidate Allergy Unknown Verified 09/23/19 04:08 [From Ritalin] Review of Systems ROS Statement: Those systems with pertinent positive or pertinent negative responses have been documented in the HPI. ROS Other: All systems not noted in ROS Statement are negative. Past Medical History Past Medical History: No Reported History History of Any Multi-Drug Resistant Organisms: None Reported Past Surgical History: Section Past Psychological History: Anxiety, Depression Smoking Status: Never smoker Past Alcohol Use History: Occasional Past Drug Use History: None Reported General Exam - General Exam Comments Initial Comments: Physical Exam GENERAL: Patient is well-developed and well-nourished. Patient is nontoxic and well-hydrated and is in no distress. HENT: Normocephalic, Atraumatic. Moist mucous membranes no signs of dehydration EYES: PERRL, EOMI PULMONARY: Unlabored respirations. CARDIOVASCULAR: RRR Warm and well perfused extremities ABDOMEN: Non-distended Minimal tenderness to deep palpation in epigastrium Negative McBurney's point tenderness negative Steele sign SKIN: No rashes or bruising : Deferred NEUROLOGIC: Alert and oriented Normal speech Normal gait MUSCULOSKELETAL: Moving all extremities with no apparent injury PSYCHIATRIC: No SI/HI Limitations: no limitations Course Vital Signs 09/23/19 04:05 Temperature 98.1 F Pulse Rate 77 Respiratory 18 Rate Blood Pressure 149/96 O2 Sat by Pulse 99 Oximetry Medical Decision Making - Medical Decision Making The patient was seen and evaluated, she reports intractable vomiting for 7 days. Patient has no signs of dehydration on physical exam. She is not tachycardic she has moist oral mucosa. She didn't have any vomiting in the emergency department. Labs did confirm some mild hypokalemia. Patient reported feeling better after IV Zofran, Pepcid and GI cocktail. She did feel a GI cocktail improved her epigastric discomfort. I discussed with the patient that she is likely suffering from gastritis, I recommend she began treatment with PPI, Carafate before meals, bland diet and follow up with gastroenterology. Patient expressed understanding of this plan. Did discuss with patient that Carafate suspension is most convenient however not always covered by insurance O prescribed her both this is prescription kitchen and the tablets should her insurance to cover the suspension. However I did express to her that she does not need both and should not take both. - Lab Data Result diagrams: 09/23/19 04:35 09/23/19 04:35 Lab Results 09/23/19 09/23/19 09/23/19 Range/Units 04:35 04:35 04:35 WBC 8.9 (3.8-10.6) k/uL RBC 4.83 (3.80-5.40) m/uL Hgb 13.9 (11.4-16.0) gm/dL Hct 39.8 (34.0-46.0) % MCV 82.3 (80.0-100.0) fL MCH 28.7 (25.0-35.0) pg MCHC 34.8 (31.0-37.0) g/dL RDW 12.6 (11.5-15.5) % Plt Count 391 (150-450) k/uL Neutrophils % 78 % Lymphocytes % 14 % Monocytes % 5 % Eosinophils % 1 % Basophils % 0 % Neutrophils # 7.0 (1.3-7.7) k/uL Lymphocytes # 1.3 (1.0-4.8) k/uL Monocytes # 0.5 (0-1.0) k/uL Eosinophils # 0.1 (0-0.7) k/uL Basophils # 0.0 (0-0.2) k/uL Sodium (137-145) mmol/L Potassium (3.5-5.1) mmol/L Chloride (98-107) mmol/L Carbon Dioxide (22-30) mmol/L Anion Gap mmol/L BUN (7-17) mg/dL Creatinine (0.52-1.04) mg/dL Est GFR (CKD-EPI)AfAm (>60 ml/min/1.73 sqM) Est GFR (CKD-EPI)NonAf (>60 ml/min/1.73 sqM) Glucose (74-99) mg/dL Calcium (8.4-10.2) mg/dL Total Bilirubin (0.2-1.3) mg/dL AST (14-36) U/L ALT (4-34) U/L Alkaline Phosphatase (38-126) U/L Total Protein (6.3-8.2) g/dL Albumin (3.5-5.0) g/dL Lipase (23-300) U/L Urine Color Yellow Urine Appearance Clear (Clear) Urine pH 5.5 (5.0-8.0) Ur Specific [place] 1.013 (1.001-1.035) Urine Protein Negative (Negative) Urine Glucose (UA) Negative (Negative) Urine Ketones 1+ H (Negative) Urine Blood Small H (Negative) Urine Nitrite Negative (Negative) Urine Bilirubin Negative (Negative) Urine Urobilinogen <2.0 (<2.0) mg/dL Ur Leukocyte Esterase Trace H (Negative) Urine RBC 2 (0-5) /hpf Urine WBC 4 (0-5) /hpf Ur Squamous Epith Cells 5 H (0-4) /hpf Urine Mucus Occasional H (None) /hpf Urine HCG, Qual Not Detected (Not Detectd) 09/23/19 Range/Units 04:35 WBC (3.8-10.6) k/uL RBC (3.80-5.40) m/uL Hgb (11.4-16.0) gm/dL Hct (34.0-46.0) % MCV (80.0-100.0) fL MCH (25.0-35.0) pg MCHC (31.0-37.0) g/dL RDW (11.5-15.5) % Plt Count (150-450) k/uL Neutrophils % % Lymphocytes % % Monocytes % % Eosinophils % % Basophils % % Neutrophils # (1.3-7.7) k/uL Lymphocytes # (1.0-4.8) k/uL Monocytes # (0-1.0) k/uL Eosinophils # (0-0.7) k/uL Basophils # (0-0.2) k/uL Sodium 136 L (137-145) mmol/L Potassium 3.3 L (3.5-5.1) mmol/L Chloride 102 (98-107) mmol/L Carbon Dioxide 22 (22-30) mmol/L Anion Gap 12 mmol/L BUN 7 (7-17) mg/dL Creatinine 0.43 L (0.52-1.04) mg/dL Est GFR (CKD-EPI)AfAm >90 (>60 ml/min/1.73 sqM) Est GFR (CKD-EPI)NonAf >90 (>60 ml/min/1.73 sqM) Glucose 101 H (74-99) mg/dL Calcium 10.4 H (8.4-10.2) mg/dL Total Bilirubin 0.8 (0.2-1.3) mg/dL AST 20 (14-36) U/L ALT 15 (4-34) U/L Alkaline Phosphatase 58 (38-126) U/L Total Protein 8.0 (6.3-8.2) g/dL Albumin 5.1 H (3.5-5.0) g/dL Lipase 34 (23-300) U/L Urine Color Urine Appearance (Clear) Urine pH (5.0-8.0) Ur Specific [place] (1.001-1.035) Urine Protein (Negative) Urine Glucose (UA) (Negative) Urine Ketones (Negative) Urine Blood (Negative) Urine Nitrite (Negative) Urine Bilirubin (Negative) Urine Urobilinogen (<2.0) mg/dL Ur Leukocyte Esterase (Negative) Urine RBC (0-5) /hpf Urine WBC (0-5) /hpf Ur Squamous Epith Cells (0-4) /hpf Urine Mucus (None) /hpf Urine HCG, Qual (Not Detectd) Disposition Clinical Impression: Nausea and vomiting, Gastritis Disposition: HOME SELF-CARE Condition: Stable Prescriptions: Sucralfate [Carafate] 1 gm PO ACHS #1 bottle Sucralfate [Carafate] 1 gm PO ACHS #60 tablet Pantoprazole Sodium [Protonix] 20 mg PO DAILY #30 tablet. Ondansetron [Zofran ODT] 4 mg PO Q8HR #12 tab Is patient prescribed a controlled substance at d/c from ED?: No Referrals: None,Stated [Primary Care Provider] - 1-2 days Lawanda Lomax MD [STAFF PHYSICIAN] - 1-2 days
[2019-09-23 04:53] LABS: ALT 15 U/L (4-34); AST 20 U/L (14-36); African American GFR (CKD) >90 (>60 ml/min/1.73 sqM); Albumin 5.1 g/dL (3.5-5.0); Alkaline Phosphatase 58 U/L (38-126); Anion Gap 12 mmol/L; Blood Urea Nitrogen 7 mg/dL (7-17); Calcium 10.4 mg/dL (8.4-10.2); Carbon Dioxide 22 mmol/L (22-30); Chloride 102 mmol/L (98-107); Glucose 101 mg/dL (74-99); Non-African American GFR(CKD) >90 (>60 ml/min/1.73 sqM); Potassium 3.3 mmol/L (3.5-5.1); Sodium 136 mmol/L (137-145); Total Bilirubin 0.8 mg/dL (0.2-1.3)
--- NOTE | 2019-09-23 05:06 | XR ---
EXAMINATION TYPE: XR abdomen 2V DATE OF EXAM: 09/23/2019 COMPARISON: 01/04/2018 HISTORY: Abdominal pain TECHNIQUE: 3 views FINDINGS: Supine and upright views show normal bowel gas pattern. There is no sign of intestinal obst ruction or pneumoperitoneum. Fecal pattern is normal. Lung bases are clear. There are no pathologic c alcifications. IMPRESSION: Nonacute abdomen. No change.
[2019-09-23] MEDS ORDERED: POTASSIUM CHLORIDE ER 20 MEQ TAB.ER PO STA (05:33)
[2019-09-23] MEDS ORDERED: ONDANSETRON 4 MG ODT STARTER PACK 2 TAB BTL PO STA (05:37)
== END 2019-09-23 05:51 | disposition home or self-care (01) ==
LOC: EC 04:04
DX: K29.70 Gastritis, unspecified, without bleeding (principal); E87.6 Hypokalemia; Z88.8 Allergy status to other drugs, medicaments and biological substances
CPT/HCPCS: 36415; 80053; 83690; 85025; 81001; 81025; 74019; 99284; 96374; 96375; 96361; J2405; S0119

== ENCOUNTER → 2021-05-25 | Outpatient (CLI) | payer OTHER ==
--- NOTE | 2021-05-26 10:38 | ECHOF ---
Referral Reason:I51.7 cardiomegaly MEASUREMENTS -------- HEIGHT: 165.1 cm WEIGHT: 56.7 kg BP: RVIDd: 2.3 cm (< 3.3) IVSd: 0.6 cm (0.6 - 1.1) LVIDd: 4.5 cm (3.9 - 5.3) LVPWd: 0.8 cm (0.6 - 1.1) IVSs: 1.2 cm LVIDs: 2.6 cm LVPWs: 1.2 cm LA Diam: 2.6 cm (2.7 - 3.8) Ao Diam: 2.6 cm (2.0 - 3.7) AV Cusp: 2.1 cm (1.5 - 2.6) LA Diam: 2.9 cm (2.7 - 3.8) MV EXCURSION: 19.218 mm (> 18.000) MV EF SLOPE: 140 mm/s (70 - 150) EPSS: 0.2 cm MV E Giovanny: 0.96 m/s MV DecT: 109 ms MV A Giovanny: 0.87 m/s MV E/A Ratio: 1.10 RAP: 5.00 mmHg RVSP: 27.98 mmHg FINDINGS -------- Sinus rhythm. This was a technically good study. LV size, wall thickness and systolic function are normal, with an EF greater than 55%. The left aakash tricular size is normal. The right ventricle is normal in size. The left atrial size is normal. The right atrial size is normal. The aortic valve is trileaflet, and appears structurally normal. No aortic stenosis or regurgitation. The AV was not well seen Mild mitral regurgitation is present. Mild tricuspid regurgitation present. Right ventricular systolic pressure is normal at < 35 mmHg. There is no pulmonic regurgitation present. There is no pericardial effusion. CONCLUSIONS -------- 1. LV size, wall thickness and systolic function are normal, with an EF greater than 55%. 2. The left ventricular size is normal. 3. The right ventricle is normal in size. 4. The left atrial size is normal. 5. The right atrial size is normal. 6. The aortic valve is trileaflet, and appears structurally normal. No aortic stenosis or regurgitati on. 7. The AV was not well seen 8. Mild mitral regurgitation is present. 9. Mild tricuspid regurgitation present. 10. There is no pericardial effusion. [employer]ER: Annmarie Garcia RDCS
== END | disposition home or self-care (01) ==
LOC: RADECHMAIN 13:55
PROVIDERS: ATTEND Family Medicine
DX: I08.1 Rheumatic disorders of both mitral and tricuspid valves (principal)
CPT/HCPCS: 93306